=== PATIENT | female | born 1940 | race Hispanic/Latino ===

== ENCOUNTER 2020-12-30 14:42 | Emergency (ER) | payer OTHER ==
[~2020-12-30] VITALS: Ht 162.6 cm; Wt 106.6 kg
[2020-12-30 14:45] VITALS: BP 121/62
== END 2020-12-30 15:25 | disposition left against medical advice (07) ==
LOC: EDH 14:42
DX: R51.9 Headache, unspecified (principal); R53.83 Other fatigue; Z53.21 Procedure and treatment not carried out due to patient leaving prior to being seen by health care provider

== ENCOUNTER 2021-02-28 11:43 | Emergency (ER) | payer MEDICARE, OTHER ==
[~2021-02-28] VITALS: Ht 167.6 cm; Wt 108.9 kg
[2021-02-28] MEDS ORDERED: MECLIZINE HCL 25 MG TABLET ONE (12:16)
[2021-02-28 12:42] LABS: BASOPHILS % (AUTO) 0.6 % (0.0-5.0); HEMATOCRIT 29.7 % (36-48); LYMPHOCYTES % (AUTO) 15.1 % (21.0-51.0); MEAN CORPUSCULAR HEMOGLOBIN 29.4 pg (27.0-33.0); MEAN CORPUSCULAR VOLUME 89.2 fL (79-99); MONOCYTES % (AUTO) 9.9 % (3.0-13.0); PLATELET COUNT (AUTO) 229 K/uL (130-400); RED BLOOD CELL COUNT(AUTO) 3.33 MIL/uL (4.00-5.50); RED CELL DISTRIBUTION WIDTH 13.2 % (11.0-15.5); WHITE BLOOD COUNT (AUTO) 10.8 K/uL (4.8-10.8)
[2021-02-28 12:46] LABS: APPEARANCE,URINE CLOUDY (CLEAR); BILIRUBIN,URINE NEGATIVE (NEGATIVE); COLOR,URINE YELLOW (YELLOW); GLUCOSE, URINE (UA) NEGATIVE (NEGATIVE); KETONES,URINE NEGATIVE (NEGATIVE); LEUKOCYTE ESTERASE ,URINE MODERATE (NEGATIVE); NITRATE,URINE NEGATIVE (NEGATIVE); OCCULT BLOOD,URINE NEGATIVE (NEGATIVE); PROTEIN,URINE NEGATIVE (NEGATIVE); UROBILINOGEN,URINE 0.2 mg/dL (0.2-1.0)
[2021-02-28 12:57] LABS: POTASSIUM 4.4 mmol/L (3.5-5.1)
[2021-02-28 13:04] LABS: ALBUMIN 3.5 g/dL (3.5-5.0); B-TYPE NATRIURETIC PEPTIDE 80 pg/mL (0-100); BILIRUBIN,TOTAL 0.7 mg/dL (0.2-1.0); CRP QUANTITATIVE 22.3 mg/L (0.00-9.0); TOTAL PROTEIN, SERUM 7.4 g/dL (6.0-8.3)
[2021-02-28 13:06] LABS: AMPHET/METH SCREEN,URINE NEGATIVE (NEGATIVE); BARBITURATE SCREEN, URINE NEGATIVE (NEGATIVE); BENZODIAZEPINES SCREEN,URINE NEGATIVE (NEGATIVE); CANNABINOID SCREEN,URINE NEGATIVE (NEGATIVE); COCAINE SCREEN,URINE NEGATIVE (NEGATIVE); OPIATE SCREEN,URINE NEGATIVE (NEGATIVE); PHENCYCLIDINE SCREEN,URINE NEGATIVE (NEGATIVE)
[2021-02-28 13:11] LABS: BACTERIA,URINE Moderate /HPF (None Seen); RBC,URINE 0-1 /HPF (0-1); SQUAMOUS EPITHELIAL CELL,UR 30-50 /HPF (0-2); YEAST,URINE BUDDING Few /HPF (None Seen)
[2021-02-28] MEDS ORDERED: MECLIZINE HCL 25 MG TABLET PO ONE (13:30)
[2021-02-28] MEDS ORDERED: CEFTRIAXONE 1G VIAL IVP SCH (14:30)
[2021-02-28] MEDS ORDERED: 0.9%NACL 50ML 50 ML IV ONE (15:34)
[2021-02-28] MEDS ORDERED: ASPI-1005 PO (16:33)
[2021-02-28] MEDS ORDERED: MECL50TA3 PO (16:33)
[2021-02-28 17:02] VITALS: BP 151/70
== END 2021-02-28 17:03 | disposition home or self-care (01) ==
LOC: EDH 11:43
DX: I67.2 Cerebral atherosclerosis (principal); R42 Dizziness and giddiness; E03.9 Hypothyroidism, unspecified; I10 Essential (primary) hypertension; J44.9 Chronic obstructive pulmonary disease, unspecified; E66.9 Obesity, unspecified; Z68.38 Body mass index [BMI] 38.0-38.9, adult; Z79.82 Long term (current) use of aspirin
CPT/HCPCS: 36415; 70450; 70544; 70547; 70551; 71045; 80053; 80305; 81001; 83880; 85025; 86140; 87088; 93005; 96374; 99285; J0696

== ENCOUNTER 2021-10-14 05:30 | Emergency (ER) | payer MEDICARE, OTHER ==
[~2021-10-14] VITALS: Ht 170.2 cm; Wt 104.3 kg
[~2021-10-14 05:30] MED LIST: ASPI-1005 PO; MECL50TA3 PO
[2021-10-14 05:59] LABS: BASOPHILS % (AUTO) 1.4 % (0.0-5.0); EOSINOPHILS % (AUTO) 2.4 % (0.0-8.0); HEMATOCRIT 30.5 % (36-48); LYMPHOCYTES % (AUTO) 25.9 % (21.0-51.0); MEAN CORPUSCULAR HEMOGLOBIN 29.7 pg (27.0-33.0); MEAN CORPUSCULAR HGB CONC 32.5 g/dL (32.0-36.0); MEAN CORPUSCULAR VOLUME 91.6 fL (79-99); MONOCYTES % (AUTO) 8.9 % (3.0-13.0); NEUTROPHILS % (AUTO) 61.1 % (40.0-77.0); PLATELET COUNT (AUTO) 215 K/uL (130-400); RED BLOOD CELL COUNT(AUTO) 3.33 MIL/uL (4.00-5.50); RED CELL DISTRIBUTION WIDTH 13.2 % (11.0-15.5); WHITE BLOOD COUNT (AUTO) 7.4 K/uL (4.8-10.8)
[2021-10-14 06:03] LABS: CREATININE 1.7 mg/dL (0.5-1.5); POTASSIUM 4.5 mmol/L (3.5-5.1)
[2021-10-14 06:13] LABS: ALBUMIN 3.4 g/dL (3.5-5.0); BILIRUBIN,TOTAL 0.5 mg/dL (0.2-1.0); TOTAL PROTEIN, SERUM 7.2 g/dL (6.0-8.3)
[2021-10-14 15:19] VITALS: BP 150/66
[2021-10-14] MEDS ORDERED: ACET-66 PO (15:19)
== END 2021-10-14 15:29 | disposition home or self-care (01) ==
LOC: EDH 05:30
DX: N63.0 Unspecified lump in unspecified breast (principal); R07.89 Other chest pain; I10 Essential (primary) hypertension; Z79.82 Long term (current) use of aspirin; Z98.890 Other specified postprocedural states; Z90.49 Acquired absence of other specified parts of digestive tract
CPT/HCPCS: 36415; 71045; 78582; 80053; 84484 ×2; 85025; 85378; 93005; 99285; A9540; A9558